=== PATIENT | male | born 1970 ===

== ENCOUNTER 2016-10-19 12:06 | Emergency (ER) | payer MEDICAID ==
[2016-10-19 12:07] VITALS: BMI 39.0
[2016-10-19 12:21] VITALS: TEMP 98.1
--- NOTE | 2016-10-19 12:54 | ED PDOC ---
Arrival/HPI - General Chief Complaint: Wound Check Time Seen by Provider: 10/19/16 12:39 Historian: Patient - History of Present Illness Narrative History of Present Illness (Text): 10/19/16 12:40 Tab Landa is a 46 year old male, whose past medical history includes diabetes and hypertension, who presents to the emergency department complaining of swelling to his penis for about 4 days. Patient states that he recently got a circumcision 4 days ago by his urologist, Dr. Bobo Guardado, and his penis has been swelling since then. Patient notes that he ran out of his medication Keflex 500 mg given post-circumcision. Patient says there is a little blood coming from wound but denies any discharge, fever, urinary symptoms, or any other complaint at this time. PMD: Dr. Yoder Urologist: Dr. Bobo Guardado Time/Duration: < week Symptom Onset: Gradual Symptom Course: Worsening Severity Level: Mild Activities at Onset: Rest Context: Home Past Medical History - Provider Review Nursing Documentation Reviewed: Yes - Infectious Disease Hx of Infectious Diseases: None - Tetanus Immunization Tetanus Immunization: Unknown - Cardiac Hx Hypertension: Yes - Pulmonary Hx Respiratory Disorders: Yes Hx Bronchitis: Yes - Neurological Hx Paralysis: No - HEENT Hx HEENT Disorder: No - Renal Hx Renal Disorder: Yes Hx Kidney Stones: Yes (lithotripsy 4 yrs ago) - Endocrine/Metabolic Hx Endocrine Disorders: Yes Hx Diabetes Mellitus Type 2: Yes - Hematological/Oncological Hx Blood Transfusions: No Hx Blood Transfusion Reaction: No - Integumentary Hx Dermatological Disorder: No - Musculoskeletal/Rheumatological Hx Arthritis: Yes - Gastrointestinal Hx Gastrointestinal Disorders: No - Genitourinary/Gynecological Hx Genitourinary Disorders: No (kidney stones) Other/Comment: circumcision 10/15/16 - Psychiatric Hx Emotional Abuse: No Hx Physical Abuse: No Hx Substance Use: No - Surgical History Hx Coronary Stent: Yes (x3) Other/Comment: kidney stones removed 2007 - Anesthesia Hx Anesthesia: Yes Hx Anesthesia Reactions: No Hx Malignant Hyperthermia: No - Suicidal Assessment Feels Threatened In Home Enviroment: No Family/Social History - Physician Review Nursing Documentation Reviewed: Yes Family/Social History: No Known Family HX Smoking Status: Former Smoker Hx Alcohol Use: No Hx Substance Use: No Hx Substance Use Treatment: No Allergies/Home Meds Allergies/Adverse Reactions: Allergies No Known Allergies Allergy (Verified 10/19/16 12:21) Home Medications: Home Meds Medication Instructions Recorded Confirmed Aspirin [Ecotrin] 81 mg PO DAILY 07/03/15 10/19/16 metFORMIN [glucOPHAGE] 750 mg PO DAILY 07/03/15 10/19/16 Losartan Potassium 50 mg PO DAILY 09/22/15 10/19/16 Alogliptin Benzoate [Alogliptin] 6.25 mg PO DAILY 09/20/16 10/19/16 amLODIPine [Norvasc] 5 mg PO DAILY 09/20/16 10/19/16 Insulin Lispro [humALOG] 10 units SUBCUT TID 10/19/16 10/19/16 Metoprolol Tartrate [Lopressor] 25 mg PO DAILY 10/19/16 10/19/16 Review of Systems - Physician Review All systems were reviewed & negative as marked: Yes - Review of Systems Constitutional: absent: Fevers, Night Sweats Eyes: absent: Vision Changes ENT: absent: Hearing Changes Respiratory: absent: SOB Cardiovascular: absent: Chest Pain Gastrointestinal: absent: Abdominal Pain Genitourinary Male: Other (Swelling to the penis). absent: Dysuria, Urinary Output Changes Musculoskeletal: absent: Arthralgias, Back Pain, Neck Pain Skin: absent: Rash, Pruritis Neurological: absent: Headache, Dizziness Endocrine: absent: Diaphoresis Hemo/Lymphatic: absent: Adenopathy Psychiatric: absent: Depression Physical Exam Vital Signs Reviewed: Yes Vital Signs Temp Pulse Resp BP Pulse Ox 10/19/16 14:31 77 16 148/97 H 97 10/19/16 12:14 98.1 F 96 H 19 150/99 H 95 Temperature: Afebrile Blood Pressure: Hypertensive Pulse: Tachycardic Respiratory Rate: Normal Appearance: Positive for: Well-Appearing, Non-Toxic, Comfortable Pain Distress: None Mental Status: Positive for: Alert and Oriented X 3 - Systems Exam Head: Present: Atraumatic, Normocephalic Pupils: Present: PERRL Extroacular Muscles: Present: EOMI Conjunctiva: Present: Normal Mouth: Present: Moist Mucous Membranes Neck: Present: Normal Range of Motion Respiratory/Chest: Present: Clear to Auscultation, Good Air Exchange. No: Respiratory Distress, Accessory Muscle Use Cardiovascular: Present: Regular Rate and Rhythm, Normal S1, S2. No: Murmurs Abdomen: Present: Normal Bowel Sounds. No: Tenderness, Distention, Peritoneal Signs Genitourinary Male: Present: Penile Swelling (Swelling to foreskin; birght red blood to area of circumcision wound). No: Penile Discharge, Erythema Back: Present: Normal Inspection Upper Extremity: Present: Normal Inspection. No: Cyanosis, Edema Lower Extremity: Present: Normal Inspection. No: Edema Neurological: Present: GCS=15, CN II-XII Intact, Speech Normal Skin: Present: Warm, Dry, Normal Color. No: Rashes Psychiatric: Present: Alert, Oriented x 3, Normal Insight, Normal Concentration Medical Decision Making ED Course and Treatment: 10/19/16 12:40 Impression: 46 year old male complaining of penile swelling post-circumcision procedure that was four days ago. Differential Diagnosis include but are not limited to: Post-surgical edema, consider early Cellulitis Plan: -- Reassess and disposition Prior Visits: Notes and results from previous visits were reviewed. Patient last seen in ED on 09/26/15 for shortness of breath and chest pain. Patient was admitted to the hospitalist care for further evaluation. Progress Notes: Case was discussed with Dr. Tate. Patient sent Dr. Tate a picture on his cell phone. Dr. Tate and I agreed that he can follow up with him in 1-2days and continue with Keflex for another 5 days. Patient and now fiancee at bedside agree with plan. He will follow up as an outpatient. He will also make sure to take his diabetic medication because his glucose was elevated. No symptoms of polydypsia, polyuria, lightheaded or any other concerns. - Medication Orders Current Medication Orders: Discontinued Medications Cephalexin Monohydrate (Keflex) 500 mg PO STAT STA PRN Reason: Protocol Stop: 10/19/16 15:15 Last Admin: 10/19/16 15:34 Dose: 500 mg - Scribe Statement The provider has reviewed the documentation as recorded by the Jud Beck Provider Scribe Attestation: All medical record entries made by the Scribe were at my direction and personally dictated by me. I have reviewed the chart and agree that the record accurately reflects my personal performance of the history, physical exam, medical decision making, and the department course for this patient. I have also personally directed, reviewed, and agree with the discharge instructions and disposition. Disposition/Present on Arrival - Present on Arrival Any Indicators Present on Arrival: No History of DVT/PE: No History of Uncontrolled Diabetes: No Urinary Catheter: No History of Decub. Ulcer: No History Surgical Site Infection Following: None - Disposition Have Diagnosis and Disposition been Completed?: Yes Diagnosis: Penile swelling Disposition: HOME/ ROUTINE Disposition Time: 15:36 Patient Plan: Discharge Condition: GOOD Additional Instructions: Mr Landa, thank you for letting us take care of you today. Your provider was Dr. Monsalve. You were treated for Penile Foreskin Swelling after Circumcision. The emergency medical care you received today was directed at your acute symptoms. If you were prescribed any medication, please fill it and take as directed. It may take several days for your symptoms to resolve. Return to the Emergency Department if your symptoms worsen, do not improve, or if you have any other problems. Please contact your doctor or call one of the physicians/clinics you have been referred to that are listed on the Patient Visit Information form that is included in your discharge packet. Bring any paperwork you were given at discharge with you along with any medications you are taking to your follow up visit. Our treatment cannot replace ongoing medical care by a primary care provider (PCP) outside of the emergency department. Thank you for allowing the [facility] team to be part of your care today. If you had an X-Ray or CT scan: A Radiologist will review the ED reading if any change in treatment is needed we will contact you. If you had a blood, urine, or wound culture: It will take several days for the results, if any change in treatment is needed we will contact you. If you had an STI test: It will take 48 hours for the results. Please call after 1 week if you have not heard back. Prescriptions: Cephalexin [Keflex] 500 mg PO Q8 #14 capsule Ibuprofen [Motrin] 600 mg PO Q6 PRN #30 tab PRN Reason: Pain, Moderate (4-7) Referrals: Francisca Yoder DO [Primary Care Provider] - Follow up with primary Bobo Tate MD [Staff Provider] - Follow up with primary Forms: [email or web address] (Moz[place]ican), WORK NOTE
[2016-10-19 14:31] VITALS: BP 148/97; PULSE 77; RESP 16; O2SAT 97
== END 2016-10-19 15:36 | disposition home or self-care (01) ==
LOC: ED 12:06
DX: N48.89 Other specified disorders of penis (principal); Z87.891 Personal history of nicotine dependence

== ENCOUNTER 2017-11-24 12:17 | Emergency (ER) | payer MEDICAID ==
[2017-11-24 12:18] VITALS: BMI 36.2
--- NOTE | 2017-11-24 12:42 | ED PDOC ---
Arrival/HPI - General Chief Complaint: Shortness Of Breath Time Seen by Provider: 11/24/17 12:36 Historian: Patient - History of Present Illness Narrative History of Present Illness (Text): 11/24/17 12:37 A 47 year old male, with an extensive cardiac history and last stent placement in 2015, sent into the emergency department by PMD for further evaluation concerning shortness of breath for 4 days. Patient notes associated mild lower leg edema. He states he took 1 Lasix 2 days ago. Patient reports a stress test done 2 years ago showed an ejection fraction of 39% and his last stress test done approximately 2 weeks ago showed an ejection fraction of 31%. However, patient has been unable to follow up with immigration attorney due to insurance complications. Patient denies any fever, chills, nausea, vomiting, abdominal pain, chest pain, calf pain or any other complaints. Patient denies any recent travel or sick contact. PMD: Dr. Dexter Yoder [employer]: Dr. Mathur Time/Duration: Other (4 days) Symptom Course: Unchanged Quality: Other Context: Home Past Medical History - Provider Review Nursing Documentation Reviewed: Yes - Infectious Disease Hx of Infectious Diseases: None - Tetanus Immunization Tetanus Immunization: Unknown - Cardiac Hx Congestive Heart Failure: Yes Hx Hypertension: Yes - Pulmonary Hx Respiratory Disorders: Yes Hx Bronchitis: Yes - Neurological Hx Paralysis: No - HEENT Hx HEENT Disorder: No - Renal Hx Renal Disorder: Yes Hx Kidney Stones: Yes (lithotripsy 4 yrs ago) - Endocrine/Metabolic Hx Endocrine Disorders: Yes Hx Diabetes Mellitus Type 2: Yes - Hematological/Oncological Hx Blood Transfusions: No Hx Blood Transfusion Reaction: No - Integumentary Hx Dermatological Disorder: No - Musculoskeletal/Rheumatological Hx Arthritis: Yes - Gastrointestinal Hx Gastrointestinal Disorders: No - Genitourinary/Gynecological Hx Genitourinary Disorders: No (kidney stones) Other/Comment: circumcision 10/15/16 - Psychiatric Hx Emotional Abuse: No Hx Physical Abuse: No Hx Substance Use: No - Surgical History Hx Coronary Stent: Yes (x3) Other/Comment: kidney stones removed 2007 - Anesthesia Hx Anesthesia: Yes Hx Anesthesia Reactions: No Hx Malignant Hyperthermia: No - Suicidal Assessment Feels Threatened In Home Enviroment: No Family/Social History - Physician Review Nursing Documentation Reviewed: Yes Family/Social History: No Known Family HX Smoking Status: Former Smoker Hx Alcohol Use: No Hx Substance Use: No Hx Substance Use Treatment: No Allergies/Home Meds Allergies/Adverse Reactions: Allergies METAL Allergy (Intermediate, Uncoded 11/24/17 12:34) RASH Home Medications: Home Meds Medication Instructions Recorded Confirmed Aspirin [Ecotrin] 81 mg PO DAILY 07/03/15 11/24/17 metFORMIN [glucOPHAGE] 1,000 mg PO BID 07/03/15 11/24/17 Alogliptin Benzoate [Alogliptin] 6.25 mg PO DAILY 09/20/16 11/24/17 amLODIPine [Norvasc] 5 mg PO DAILY 09/20/16 11/24/17 Albuterol HFA [Ventolin HFA 90 2 puff IH [id number] PRN 11/06/17 11/24/17 mcg/actuation (8 g)] Atorvastatin [Lipitor] 20 mg PO DAILY 11/06/17 11/24/17 Insulin Detemir [Levemir] 25 unit SC HS PRN 11/18/17 11/24/17 Review of Systems - Physician Review All systems were reviewed & negative as marked: Yes - Review of Systems Constitutional: absent: Fevers, Night Sweats Respiratory: SOB Cardiovascular: Edema. absent: Chest Pain, Calf Pain Gastrointestinal: absent: Abdominal Pain, Nausea, Vomiting Physical Exam Vital Signs Temp Pulse Resp BP Pulse Ox 11/24/17 16:32 72 18 123/79 99 11/24/17 16:00 88 18 125/79 98 11/24/17 14:18 98.6 F 78 18 132/79 98 11/24/17 12:52 20 11/24/17 12:18 98 F 78 18 125/72 99 Appearance: Positive for: Well-Appearing, Non-Toxic, Comfortable Pain Distress: None Mental Status: Positive for: Alert and Oriented X 3 - Systems Exam Head: Present: Atraumatic, Normocephalic Pupils: Present: PERRL Extroacular Muscles: Present: EOMI Conjunctiva: Present: Normal Mouth: Present: Moist Mucous Membranes Neck: Present: Normal Range of Motion Respiratory/Chest: Present: Good Air Exchange, Rales (to bilateral bases). No: Respiratory Distress, Accessory Muscle Use Cardiovascular: Present: Regular Rate and Rhythm, Normal S1, S2. No: Murmurs Abdomen: Present: Normal Bowel Sounds. No: Tenderness, Distention, Peritoneal Signs Back: Present: Normal Inspection Upper Extremity: Present: Normal Inspection. No: Cyanosis, Edema Lower Extremity: Present: Normal Inspection. No: Edema Neurological: Present: GCS=15, CN II-XII Intact, Speech Normal Skin: Present: Warm, Dry, Normal Color. No: Rashes Psychiatric: Present: Alert, Oriented x 3, Normal Insight, Normal Concentration Medical Decision Making ED Course and Treatment: 11/24/17 12:37 Impression: A 47 year old male with shortness of breath and lower leg edema. Plan: -- Chest xray -- EKG -- Labs -- Reassess and disposition Progress Notes: Report Date : 11/24/2017 13:05:15 Procedure: Chest xray Dictator : Fran Saab MD IMPRESSION: No active disease. 11/24/17 12:45 EKG shows NSR at 79 BPM with normal axis, normal intervals. Interpreted by me. 11/24/17 13:35 Discussed case with PMD, who is aware and agrees with Emergency department management plan, requests patient to be discharged home with follow-up instructions for PMD tomorrow. Patient understands and agrees with plan. Patient denies any new complaints and currently denies any shortness of breath. - Lab Interpretations Lab Results: 11/24/17 12:45 11/24/17 12:45 Lab Results 11/24/17 12:50: POC Glucose (mg/dL) 223 H 11/24/17 12:45: Sodium 144, Potassium 4.1, Chloride 107, Carbon Dioxide 23, Anion Gap 17, BUN 16, Creatinine 1.2, Est GFR ( Amer) > 60, Est GFR (Non- Af Amer) > 60, Random Glucose 217 H, Calcium 9.0, Magnesium 1.8, Total Bilirubin 0.9, AST 27, ALT 32, Alkaline Phosphatase 60, Lactate Dehydrogenase 516, Total Creatine Kinase 152, Troponin I 0.02 D, NT-Pro-B Natriuret Pep 111, Total Protein 7.8, Albumin 4.2, Globulin 3.6, Albumin/Globulin Ratio 1.2 11/24/17 12:45: D-Dimer, Quantitative 2440 H 11/24/17 12:45: WBC 5.5, RBC 4.13, Hgb 12.4 L, Hct 36.4 L, MCV 88.1, MCH 30.0, MCHC 34.1, RDW 13.5, Plt Count 189, MPV 10.8, Gran % 56.6, Lymph % (Auto) 34.3, [place] % (Auto) 5.1, Eos % (Auto) 3.1, Baso % (Auto) 0.9, Gran # 3.08, Lymph # ( Auto) 1.9, [place] # (Auto) 0.3, Eos # (Auto) 0.2, Baso # (Auto) 0.05 I have reviewed the lab results: Yes - RAD Interpretation Radiology Orders: 11/24/17 12:40 CHEST PORTABLE [RAD] Stat 11/24/17 13:52 ANGIO CHEST PE PROTOCOL [CT] Stat - Scribe Statement The provider has reviewed the documentation as recorded by the Scribe Heavenly Cabrera Provider Scribe Attestation: All medical record entries made by the Scribe were at my direction and personally dictated by me. I have reviewed the chart and agree that the record accurately reflects my personal performance of the history, physical exam, medical decision making, and the department course for this patient. I have also personally directed, reviewed, and agree with the discharge instructions and disposition. Disposition/Present on Arrival - Present on Arrival Any Indicators Present on Arrival: No History of DVT/PE: No History of Uncontrolled Diabetes: No Urinary Catheter: No History of Decub. Ulcer: No History Surgical Site Infection Following: None - Disposition Have Diagnosis and Disposition been Completed?: Yes Diagnosis: Elevated d-dimer Disposition: HOME/ ROUTINE Disposition Time: 16:20 Condition: GOOD Discharge Instructions (ExitCare): Shortness of Breath (Dyspnea) (DC) Additional Instructions: JOSE CABELLO, thank you for letting us take care of you today. The emergency medical care you received today was directed at your acute symptoms. If you were prescribed any medication, please fill it and take as directed. It may take several days for your symptoms to resolve. Return to the Emergency Department if your symptoms worsen, do not improve, or if you have any other problems. Please contact your doctor or call one of the physicians/clinics you have been referred to that are listed on the Patient Visit Information form that is included in your discharge packet. Bring any paperwork you were given at discharge with you along with any medications you are taking to your follow up visit. Our treatment cannot replace ongoing medical care by a primary care provider outside of the emergency department. Thank you for allowing the [facility] team to be part of your care today. Follow up with your primary doctor at 9am tomorrow. They are expecting you at that time. Referrals: Dexter Yoder APN [Primary Care Provider] - Follow up with primary Forms: [employer] (Sammarinese)
--- NOTE | 2017-11-24 13:06 | RAD ---
HISTORY: r/o infiltrate COMPARISON: Comparison chest 09/26/2015 FINDINGS: LUNGS: No active pulmonary disease. PLEURA: No significant pleural effusion identified, no pneumothorax apparent. CARDIOVASCULAR: Heart remains enlarged OSSEOUS STRUCTURES: No significant abnormalities. VISUALIZED UPPER ABDOMEN: Normal. OTHER FINDINGS: None. IMPRESSION: No active disease.
[2017-11-24 13:09] LABS: BASO # 0.05 K/mm3 (0.0-2.0); BASO % 0.9 % (0.0-3.0); EOS # 0.2 (0.0-0.7); EOS % 3.1 % (1.5-5.0); GRAN # 3.08 (1.4-6.5); GRAN % 56.6 % (50.0-68.0); HEMOGLOBIN 12.4 g/dL (14.0-18.0); LYMPH # 1.9 (1.2-3.4); LYMPH % 34.3 % (22.0-35.0); MEAN CELL VOLUME 88.1 fl (80.0-105.0); MEAN CORPUSCULAR HGB CONC 34.1 g/dl (31.0-37.0); MEAN PLATELET VOLUME 10.8 fl (7.0-11.0); MONO # 0.3 (0.1-0.6); MONO % 5.1 % (1.0-6.0); RBC 4.13 10^6/uL (3.5-6.1); RED CELL DISTRIBUTION WIDTH 13.5 % (11.5-14.5); WHITE BLOOD COUNT 5.5 10^3/ul (4.5-11.0)
[2017-11-24 13:27] LABS: ALB/GLOB RATIO 1.2 (1.1-1.8); ALBUMIN 4.2 g/dL (3.0-4.8); ALT/SGPT 32 U/L (7-56); AST/SGOT 27 U/L (17-59); BLOOD UREA NITROGEN 16 mg/dL (7-21); GFR AFRICAN-AMERICAN > 60; GFR NON-AFRICAN AMERICAN > 60
[2017-11-24 13:35] LABS: B-TYPE NATRIURETIC PEPTIDE 111 pg/mL (0-450); TROPONIN I 0.02 ng/mL
[2017-11-24] MEDS ORDERED: Iohexol 350 MG/100 ML VIAL ONE (14:21)
--- NOTE | 2017-11-24 15:35 | CARD ---
APPROVED REPORT EKG Measurement Heart [id number] <Conclusion> Normal sinus rhythm Nonspecific intraventricular block Nonspecific T wave abnormality Abnormal ECG
--- NOTE | 2017-11-24 16:03 | CT ---
PROCEDURE: CT Chest with contrast (Pulmonary Angiogram) HISTORY: SOB r/o PE COMPARISON: Comparison chest 09/19/2015 TECHNIQUE: Axial computed tomography images were obtained of the chest in the pulmonary arterial phase of enhancement. Coronal and sagittal reformatted images were created and reviewed. Intravenous contrast dose: Radiation dose: Total exam DLP = 769.26 mGy-cm. This CT exam was performed using one or more of the following dose reduction techniques: Automated exposure control, adjustment of the mA and/or kV according to patient size, and/or use of iterative reconstruction technique. FINDINGS: PULMONARY ARTERIES: The at visualized pulmonary trunk, right and left main, lobar, segmental and proximal subsegmental branches of the pulmonary arteries are well opacified with no definitive filling defects seen to suggest acute central pulmonary embolus. Pulmonary trunk measures approximately 3.5 cm slightly larger than the ascending thoracic aorta; rule out underlying mild pulmonary arterial hypertension. AORTA: No acute findings. No thoracic aortic aneurysm. LUNGS: There are ground-glass opacity seen throughout upper and lower lobes lesser degree upper and lower lobes nonspecific. Rule out air trapping, pneumonitis or sequela of pulmonary arterial hypertension. No focal consolidation. No obvious parenchymal mass or nodule. PLEURAL SPACES: Unremarkable. No effusion or pneuomothorax. HEART: Heart is enlarged. . There is a small amount of fluid seen within the cleft between the ascending thoracic aorta and pulmonary trunk . There may also be a small amount of. Ascending thoracic aorta measures approximate 3.45 cm and descending thoracic aorta measures approximately 2.55 cm. No significant hilar adenopathy. Central airways midline and patent. No large central endoluminal lesions. LYMPH NODES: There are multiple small nonspecific mediastinal lymph nodes the largest in the right paratracheal region measuring approximately 14 mm. . Additionally, there also appear to be small bilateral hilar lymph nodes. BONES, CHEST WALL: Mild multilevel degenerative spondylosis of the thoracic spine OTHER FINDINGS: Unremarkable. IMPRESSION: No evidence of acute central pulmonary embolus. Cardiomegaly. Ground-glass opacity seen throughout the upper and lower lobes. Rule out air trapping, pneumonitis or possibly sequela of pulmonary arterial hypertension as above.
[2017-11-24 16:29] VITALS: RESP 18; TEMP 98.6
[2017-11-24 16:33] VITALS: BP 123/79; PULSE 72; O2SAT 99
== END 2017-11-24 16:32 | disposition home or self-care (01) ==
LOC: ED 12:17
DX: R79.89 Other specified abnormal findings of blood chemistry (principal); E11.9 Type 2 diabetes mellitus without complications; I50.9 Heart failure, unspecified; I10 Essential (primary) hypertension; Z87.891 Personal history of nicotine dependence
CPT/HCPCS: 71045; 71275; 80053; 82550; 82948; 83615; 83735; 83880; 84484; 85025; 85378; 93005; 99283; Q9967

== ENCOUNTER 2017-12-10 07:05 | Emergency (ER) | payer MEDICAID ==
[2017-12-10 07:06] VITALS: BMI 36.2
[2017-12-10 07:25] VITALS: RESP 18; O2SAT 97
--- NOTE | 2017-12-10 07:41 | ED PDOC ---
Arrival/HPI - General Time Seen by Provider: 12/10/17 07:11 Historian: Patient - History of Present Illness Narrative History of Present Illness (Text): 12/10/17 07:31 47 year old male, whose past medical history includes CHF, CAD s/p 2 stents ( 2013), hypertension and diabetes, presents to the emergency department complaining of shortness of breath that began 1 week ago. Patient also reports associated lower leg edema. He states his Lasix has been and he has not been taking it and is taking Aspirin everyday. Patient reports he had an echocardiogram done 2 years ago showed an ejection fraction of 39% and his last echocardiogram done approximately 3 weeks ago showed an ejection fraction of 31% . Due to these results, Dr. Mathur scheduled patient for a cardiac catheterization 3 weeks ago, but patient was unable to continue with the plan due to insurance complications. Patient reports cough with yellow phlegm, but denies any fever, chills, chest pain, nausea, vomiting, diarrhea, urinary symptoms, back pain, neck pain, headache, dizziness, or any other complaints. PMD: Dr. Yoder Proof Clerk: Dr. Mathur Past Medical History - Provider Review Nursing Documentation Reviewed: Yes - Infectious Disease Hx of Infectious Diseases: None - Tetanus Immunization Tetanus Immunization: Unknown - Cardiac Hx Congestive Heart Failure: Yes Hx Hypertension: Yes - Pulmonary Hx Respiratory Disorders: Yes Hx Bronchitis: Yes - Neurological Hx Paralysis: No - HEENT Hx HEENT Disorder: No - Renal Hx Renal Disorder: Yes Hx Kidney Stones: Yes (lithotripsy 4 yrs ago) - Endocrine/Metabolic Hx Endocrine Disorders: Yes Hx Diabetes Mellitus Type 2: Yes - Hematological/Oncological Hx Blood Transfusions: No Hx Blood Transfusion Reaction: No - Integumentary Hx Dermatological Disorder: No - Musculoskeletal/Rheumatological Hx Arthritis: Yes - Gastrointestinal Hx Gastrointestinal Disorders: No - Genitourinary/Gynecological Hx Genitourinary Disorders: No (kidney stones) Other/Comment: circumcision 10/15/16 - Psychiatric Hx Emotional Abuse: No Hx Physical Abuse: No Hx Substance Use: No - Surgical History Hx Coronary Stent: Yes (x3) Other/Comment: kidney stones removed 2007 - Anesthesia Hx Anesthesia: Yes Hx Anesthesia Reactions: No Hx Malignant Hyperthermia: No - Suicidal Assessment Feels Threatened In Home Enviroment: No Family/Social History - Physician Review Nursing Documentation Reviewed: Yes Family/Social History: No Known Family HX Smoking Status: Former Smoker Hx Alcohol Use: No Hx Substance Use: No Hx Substance Use Treatment: No Allergies/Home Meds Allergies/Adverse Reactions: Allergies METAL Allergy (Intermediate, Uncoded 12/10/17 07:26) RASH Home Medications: Home Meds Medication Instructions Recorded Confirmed Aspirin [Ecotrin] 81 mg PO DAILY 07/03/15 12/10/17 metFORMIN [glucOPHAGE] 1,000 mg PO BID 07/03/15 12/10/17 Alogliptin Benzoate [Alogliptin] 6.25 mg PO DAILY 09/20/16 12/10/17 amLODIPine [Norvasc] 5 mg PO DAILY 09/20/16 12/10/17 Albuterol HFA [Ventolin HFA 90 2 puff IH [id number] PRN 11/06/17 12/10/17 mcg/actuation (8 g)] Atorvastatin [Lipitor] 20 mg PO DAILY 11/06/17 12/10/17 Insulin Detemir [Levemir] 25 unit SC HS PRN 11/18/17 12/10/17 Review of Systems - Physician Review All systems were reviewed & negative as marked: Yes - Review of Systems Constitutional: absent: Fevers Respiratory: SOB Cardiovascular: absent: Chest Pain Physical Exam - Physical Exam Narrative Physical Exam (Text): Constitutional: No acute distress. Head: Normocephalic. Atraumatic. Eyes: PERRL. ENT: Moist mucous membranes. Neck: Supple. No JVD. Cardiovascular: Regular rate. Chest: No tenderness. Respiratory: Clear to auscultation bilaterally. GI: Soft. Nontender. Nondistended. Back: No CVA tenderness. Musculoskeletal: Pitting Edema bilaterally. No tenderness of extremities. Skin: No rash. Neurologic: Alert, no focal deficit. Vital Signs Reviewed: Yes Vital Signs Temp Pulse Resp BP Pulse Ox 12/10/17 07:42 129/72 12/10/17 07:18 97.9 F 86 18 128/72 97 12/10/17 07:15 20 97 Medical Decision Making ED Course and Treatment: 12/10/17 07:32 Impression: 47 year old male presents complaining of shortness of breath for the past week associated with lower leg edema and cough. Plan: -- Labs -- Chest X-ray -- Lasix -- EKG -- Reassess and disposition Prior Visits: Notes and results from previous visits were reviewed. Patient was last seen in the emergency department on sent in by PMD for evaluation concerning shortness of breath for 4 days associated with lower leg edema. Patient was discharged. Progress Notes: 12/10/17 07:20 EKG shows sinus rhythm at 84 BPM with t-wave inversions laterally. No ST elevations with no prior for comparison. Interpreted by me. 12/10/17 08:20 CXR Impression: As read by me, no active disease. Case discussed with Dr. Mathur who is aware and agrees with the plan for discharge and request patient to follow up with him as outpatient. 12/10/17 08:22 On re-evaluation, patient feels better and is in no distress. I have discussed the results and plan with the patient, who expresses understanding. Patient in agreement with plan to be discharged home. Prescribed Lasix. Patient is stable for discharge. Patient was instructed to follow up with Proof Clerk Dr. Mathur or return if symptoms worsen or new concerning symptoms arise. - Lab Interpretations Lab Results: 12/10/17 07:24 12/10/17 07:24 Lab Results 12/10/17 07:40: POC Glucose (mg/dL) 207 H 12/10/17 07:24: Sodium 144, Potassium 3.9, Chloride 106, Carbon Dioxide 25, Anion Gap 17, BUN 14, Creatinine 1.0, Est GFR ( Amer) > 60, Est GFR (Non- Af Amer) > 60, Random Glucose 216 H, Calcium 9.2, Total Bilirubin 0.8, AST 27, ALT 32, Alkaline Phosphatase 50, Total Creatine Kinase 169, Troponin I 0.02, NT- Pro-B Natriuret Pep 173, Total Protein 7.8, Albumin 4.2, Globulin 3.7, Albumin/ Globulin Ratio 1.1 12/10/17 07:24: WBC 5.1, RBC 4.00, Hgb 12.0 L, Hct 35.6 L, MCV 89.0, MCH 30.0, MCHC 33.7, RDW 13.4, Plt Count 190, MPV 11.1 H, Gran % 60.9, Lymph % (Auto) 28.8 , Graves % (Auto) 6.4 H, Eos % (Auto) 3.5, Baso % (Auto) 0.4, Gran # 3.13, Lymph # (Auto) 1.5, Graves # (Auto) 0.3, Eos # (Auto) 0.2, Baso # (Auto) 0.02 I have reviewed the lab results: Yes - RAD Interpretation Radiology Orders: 12/10/17 07:20 CHEST PORTABLE [RAD] Stat - EKG Interpretation Interpreted by ED Physician: Yes Type: 12 lead EKG - Medication Orders Current Medication Orders: Discontinued Medications Furosemide (Lasix) 40 mg IVP STAT STA Stop: 12/10/17 07:33 Last Admin: 12/10/17 07:42 Dose: 40 mg MAR Blood Pressure Document 12/10/17 07:42 EWO (Rec: 12/10/17 07:42 [id number]) Blood Pressure Blood Pressure (100/60-150/90) 129/72 IVP Administration Document 12/10/17 07:42 EWO (Rec: 12/10/17 07:42 [id number]) Charges for Administration # of IVP Administrations 1 - Scribe Statement The provider has reviewed the documentation as recorded by the Jud Junior Provider Scribe Attestation: All medical record entries made by the Jud were at my direction and personally dictated by me. I have reviewed the chart and agree that the record accurately reflects my personal performance of the history, physical exam, medical decision making, and the department course for this patient. I have also personally directed, reviewed, and agree with the discharge instructions and disposition. Disposition/Present on Arrival - Present on Arrival Any Indicators Present on Arrival: No History of DVT/PE: No History of Uncontrolled Diabetes: No Urinary Catheter: No History of Decub. Ulcer: No History Surgical Site Infection Following: None - Disposition Have Diagnosis and Disposition been Completed?: Yes Diagnosis: Shortness of breath Disposition: HOME/ ROUTINE Disposition Time: 08:22 Patient Plan: Discharge Condition: STABLE Discharge Instructions (ExitCare): Heart Failure, Adult (DC) Prescriptions: Furosemide [Lasix] 1 tab PO BID #60 tab Referrals: Laureano Mathur MD [Staff Provider] - Follow up with primary
[2017-12-10 08:03] LABS: BASO # 0.02 K/mm3 (0.0-2.0); BASO % 0.4 % (0.0-3.0); EOS # 0.2 (0.0-0.7); EOS % 3.5 % (1.5-5.0); GRAN # 3.13 (1.4-6.5); GRAN % 60.9 % (50.0-68.0); LYMPH # 1.5 (1.2-3.4); LYMPH % 28.8 % (22.0-35.0); MEAN CORPUSCULAR HGB CONC 33.7 g/dl (31.0-37.0); MEAN PLATELET VOLUME 11.1 fl (7.0-11.0); MONO # 0.3 (0.1-0.6); MONO % 6.4 % (1.0-6.0); RED CELL DISTRIBUTION WIDTH 13.4 % (11.5-14.5); WHITE BLOOD COUNT 5.1 10^3/ul (4.5-11.0)
[2017-12-10 08:08] LABS: ALB/GLOB RATIO 1.1 (1.1-1.8); ALBUMIN 4.2 g/dL (3.0-4.8); ALT/SGPT 32 U/L (7-56); AST/SGOT 27 U/L (17-59); BLOOD UREA NITROGEN 14 mg/dL (7-21); CALCIUM 9.2 mg/dL (8.4-10.5); GFR AFRICAN-AMERICAN > 60; GFR NON-AFRICAN AMERICAN > 60
[2017-12-10 08:19] LABS: B-TYPE NATRIURETIC PEPTIDE 173 pg/mL (0-450); TROPONIN I 0.02 ng/mL
[2017-12-10 08:30] LABS: INR 1.15 (0.93-1.08); PARTIAL THROMBOPLASTIN TIME 31.1 Seconds (25.1-36.5); PROTHROMBIN TIME 13.3 SECONDS (9.4-12.5)
[2017-12-10 08:43] VITALS: BP 133/88; PULSE 78; TEMP 98.2
--- NOTE | 2017-12-10 09:57 | RAD ---
Date of service: 12/10/2017 HISTORY: dyspnea COMPARISON: 11/24/2017 FINDINGS: LUNGS: No active pulmonary disease. PLEURA: No significant pleural effusion identified, no pneumothorax apparent. CARDIOVASCULAR: Normal. OSSEOUS STRUCTURES: No significant abnormalities. VISUALIZED UPPER ABDOMEN: Normal. OTHER FINDINGS: None. IMPRESSION: No active disease.
--- NOTE | 2017-12-10 18:40 | CARD ---
APPROVED REPORT Date of service: 12/10/2017 EKG Measurement Heart [id number] <Conclusion> Normal sinus rhythm Possible Left atrial enlargement Nonspecific intraventricular block T wave abnormality, consider lateral ischemia Abnormal ECG
== END 2017-12-10 08:41 | disposition home or self-care (01) ==
LOC: ED 07:05
DX: R06.02 Shortness of breath (principal)
CPT/HCPCS: 71045; 80053; 82550; 82948; 83880; 84484; 85025; 85610; 85730; 93005; 96374; 99283; J1940

== ENCOUNTER 2017-12-30 06:20 | Day surgery (SDC) | payer MEDICAID ==
[2017-12-30 07:10] LABS: BASO # 0.04 K/mm3 (0.0-2.0); BASO % 0.7 % (0.0-3.0); EOS # 0.2 (0.0-0.7); EOS % 3.3 % (1.5-5.0); GRAN # 3.67 (1.4-6.5); HEMOGLOBIN 12.2 g/dL (14.0-18.0); LYMPH # 1.7 (1.2-3.4); LYMPH % 28.3 % (22.0-35.0); MEAN CELL VOLUME 88.8 fl (80.0-105.0); MEAN CORPUSCULAR HEMOGLOBIN 29.7 pg (25.0-35.0); MEAN CORPUSCULAR HGB CONC 33.4 g/dl (31.0-37.0); MEAN PLATELET VOLUME 10.5 fl (7.0-11.0); MONO # 0.5 (0.1-0.6); MONO % 7.7 % (1.0-6.0); RBC 4.11 10^6/uL (3.5-6.1); RED CELL DISTRIBUTION WIDTH 13.7 % (11.5-14.5); WHITE BLOOD COUNT 6.1 10^3/ul (4.5-11.0)
[2017-12-30 07:17] LABS: INR 1.09; PARTIAL THROMBOPLASTIN TIME 26.5 Seconds (25.1-36.5); PROTHROMBIN TIME 12.5 SECONDS (9.4-12.5)
[2017-12-30 07:24] LABS: BLOOD UREA NITROGEN 17 mg/dL (7-21); GFR AFRICAN-AMERICAN > 60; GFR NON-AFRICAN AMERICAN > 60; HDL CHOLESTEROL 31 mg/dL (29-60)
[2017-12-30] MEDS ORDERED: Lidocaine PF 2% (5 ml) Inj (For Cardiac Arrhy) ONE (07:24)
[2017-12-30] MEDS ORDERED: Phenylephrine 10 mg/ml Inj ONE (07:24)
[2017-12-30] MEDS ORDERED: Nitroglycerin 50mg in D5W 50 MG/250 ML BOTTLE IV ONE (07:25)
[2017-12-30] MEDS ORDERED: Iohexol 350mgl/ml 50 ML ONE (07:25)
[2017-12-30] MEDS ORDERED: Iodixanol 320 MG/ML 100 ML BOTTLE IV ONE (07:25)
[2017-12-30] MEDS ORDERED: Iodixanol 320 MG/ML 200 ML BOTTLE IV ONE (07:25)
[2017-12-30 07:26] VITALS: RESP 18
[2017-12-30 07:28] LABS: LDL CHOLESTEROL 82 mg/dL (0-129)
[2017-12-30] MEDS ORDERED: Midazolam 2 MG/2 ML VIAL ONE ×2 (07:53→07:58)
[2017-12-30] MEDS ORDERED: Sodium Chloride 0.9% 1,000 ML IV SCH (08:30)
[2017-12-30 08:42] VITALS: TEMP 97.7
--- NOTE | 2017-12-30 12:03 | CARD ---
APPROVED REPORT Date of service: 12/30/2017 EKG Measurement Heart [id number] <Conclusion> Normal sinus rhythm Possible Left atrial enlargement Nonspecific intraventricular block Nonspecific T wave abnormality Abnormal ECG
--- NOTE | 2017-12-30 13:24 | CARDCATH ---
Copied To: Laureano Mathur MD Attending MD: Lauraeno Mathur MD PROCEDURE DATE: 12/30/2017 HISTORY: The patient is a 47-year-old male who presents with shortness of breath and chest pain. Stress test was abnormal with ischemic changes as well as deterioration of his LV function. The patient suffers from diabetes mellitus, previous PTCA in the past, hypercholesterolemia, noncompliance to medical advice. PROCEDURE: Left heart catheterization with coronary arteriography and left ventriculogram. The right femoral artery was cannulated with a 6-[place] sheath. There were no complications. I performed moderate sedation for the procedure with an assistant boys track coach monitoring his vitals and neurologic status, the patient was given Versed and fentanyl. Total conscious sedation time was 15 minutes. The findings on catheterization revealed a left ventricle that was dilated and diffusely hypokinetic. Estimated ejection fraction of 25-30%. His coronary anatomy revealed a right dominant circulation. The RCA revealed a patent stent in the midportion. There was a 50% stenosis in the proximal RCA. The left main artery revealed diffuse atherosclerosis. The circumflex artery and obtuse marginal branches revealed diffuse atherosclerosis. The LAD revealed a 50% stenosis in its midportion with a 60-70% stenosis in a diagonal vessel. The Angio-Seal was used to close the femoral artery site. The patient tolerated the procedure well. In summary, the procedure revealed dilated cardiomyopathy with an EF of 25-30%. Cardiac catheterization revealed patent stent in the mid RCA with borderline critical lesion in the proximal RCA, mid LAD and diagonal vessel. Given these findings, no stents were necessary or angioplasty of his coronary arteries, instead, his cardiomyopathy will need to be treated medically with afterload reduction and possible beta blockers. He needs to finally lose weight and undergo a cardiac risk reduction program. Laureano Mathur MD
[2017-12-30 14:23] VITALS: BP 142/81; PULSE 78; O2SAT 95
== END 2017-12-30 14:10 | disposition home or self-care (01) ==
LOC: CATH 06:20
PROVIDERS: ATTEND Internal Medicine Cardiovascular Disease
DX: I42.0 Dilated cardiomyopathy (principal); I25.10 Atherosclerotic heart disease of native coronary artery without angina pectoris; E11.9 Type 2 diabetes mellitus without complications; E78.00 Pure hypercholesterolemia, unspecified; Z91.19 Patient's noncompliance with other medical treatment and regimen; Z79.4 Long term (current) use of insulin; Z79.82 Long term (current) use of aspirin; Z95.5 Presence of coronary angioplasty implant and graft
CPT/HCPCS: 36415; 80048; 80061; 85025; 85610; 85730; 86850; 86900; 93005; 93458; 99152; C1760; C1769; C2629; J1644; J2250; J3010; J7040; Q9966; Q9967 ×2

== ENCOUNTER 2018-08-20 17:10 | Emergency (ER) | payer MEDICAID ==
[2018-08-20 17:11] VITALS: BMI 36.2
[2018-08-20 17:22] VITALS: BP 171/97; PULSE 85; RESP 18; TEMP 99; O2SAT 96
--- NOTE | 2018-08-20 18:16 | RAD ---
Date of service: 08/20/2018 PROCEDURE: Right Knee Radiographs. HISTORY: knee pain s/p fall today COMPARISON: None. TECHNIQUE: 3 views obtained. FINDINGS: BONES: Bone alignment and mineralization are normal. There is no acute displaced fracture or bone destruction. JOINTS: There is mild tricompartmental degenerative osteoarthrosis with reduced joint spaces, marginal osteophytes and tibial spiking, worse in the lateral compartment. JOINT EFFUSION: There is a small suprapatellar joint effusion. OTHER FINDINGS: None. IMPRESSION: No acute displaced fracture or dislocation. Mild tricompartmental degenerative osteoarthrosis, worse in the lateral compartment and small suprapatellar joint effusion.
--- NOTE | 2018-08-20 18:23 | ED PDOC ---
Arrival/HPI - General Chief Complaint: Lower Extremity Problem/Injury Time Seen by Provider: 08/20/18 17:20 Historian: Patient - History of Present Illness Narrative History of Present Illness (Text): 08/20/18 18:46 48 y/o male with PMH of CAD, DM, HTN, CHF, osteoarthritis, presents to the ED c/o right knee pain s/p mechanical fall this afternoon. Pt was stepping down the 2nd step of a ladder when he missed the bottom step, twisting his right knee and falling to the ground. Now c/o pain to bilateral joint lines worse with ambulation and bearing weight. Denies head strike or LOC. Pt not on blood thinners. Pt does not have an orthopedic doctor. Has not taken any medication for pain. Denies numbness, weakness, paresthesias, vision changes, dizziness, headache, nausea, vomiting, back pain, neck pain, saddle anesthesia, inc ontinence, or any other associated symptoms. Past Medical History - Provider Review Nursing Documentation Reviewed: Yes - Infectious Disease Hx of Infectious Diseases: None - Tetanus Immunization Tetanus Immunization: Unknown - Cardiac Hx Cardiac Disorders: Yes Hx Congestive Heart Failure: Yes Hx Hypertension: Yes Other/Comment: cardiac cath x 3 stents - Pulmonary Hx Respiratory Disorders: Yes Hx Bronchitis: Yes - Neurological Hx Neurological Disorder: No - HEENT Hx HEENT Disorder: Yes (READING GALSSES) - Renal Hx Renal Disorder: Yes Hx Kidney Stones: Yes (lithotripsy 4 yrs ago) - Endocrine/Metabolic Hx Endocrine Disorders: Yes Hx Diabetes Mellitus Type 2: Yes - Hematological/Oncological Hx Blood Disorders: No - Integumentary Hx Dermatological Disorder: No - Musculoskeletal/Rheumatological Hx Falls: No - Gastrointestinal Hx Gastrointestinal Disorders: No - Genitourinary/Gynecological Hx Genitourinary Disorders: Yes (kidney stones) - Psychiatric Hx Psychophysiologic Disorder: No Hx Substance Use: No - Surgical History Hx Coronary Stent: Yes (x3) Hx Orthopedic Surgery: Yes (LEFT KNEE ,RIGHT HAND) Other/Comment: kidney stones removed 2007 - Anesthesia Hx Anesthesia: Yes Hx Anesthesia Reactions: No Hx Malignant Hyperthermia: No - Suicidal Assessment Feels Threatened In Home Enviroment: No Family/Social History - Physician Review Nursing Documentation Reviewed: Yes Family/Social History: No Known Family HX Smoking Status: Former Smoker Hx Alcohol Use: No Hx Substance Use: No Hx Substance Use Treatment: No Allergies/Home Meds Allergies/Adverse Reactions: Allergies METAL Allergy (Intermediate, Uncoded 08/20/18 17:17) RASH Home Medications: Home Meds Medication Instructions Recorded Confirmed Aspirin [Ecotrin] 81 mg PO DAILY 07/03/15 08/20/18 metFORMIN [glucOPHAGE] 1,000 mg PO BID 07/03/15 08/20/18 amLODIPine [Norvasc] 5 mg PO DAILY 09/20/16 08/20/18 Atorvastatin [Lipitor] 20 mg PO DAILY 11/06/17 08/20/18 Insulin Detemir [Levemir] 25 unit SC HS PRN 11/18/17 08/20/18 Furosemide [Lasix] 20 mg PO BID 08/20/18 08/20/18 Losartan/Hydrochlorothiazide 1 tab PO DAILY 08/20/18 08/20/18 [Losartan-Hctz 50-12.5 mg Tab] Sacubitril/Valsartan [Entresto 49 1 tab PO DAILY 08/20/18 08/20/18 mg-51 mg] Spironolactone [Aldactone] 1 tab PO QOTHERDAY 08/20/18 08/20/18 Review of Systems - Review of Systems Constitutional: Normal. absent: Fatigue, Fevers Eyes: Normal. absent: Vision Changes Respiratory: Normal. absent: SOB, Cough Cardiovascular: Normal. absent: Chest Pain, Palpitations Gastrointestinal: Normal. absent: Abdominal Pain, Stool Changes, Nausea, Vomiting, Appetite Changes Musculoskeletal: Other (knee pain). absent: Back Pain, Neck Pain Skin: Normal. absent: Rash, Laceration, Abscess Neurological: Normal. absent: Headache, Dizziness, Focal Weakness, Gait Changes, Disequilibrium, Seizure Physical Exam Vital Signs Reviewed: Yes Vital Signs Temp Pulse Resp BP Pulse Ox 08/20/18 17:21 99.0 F 85 18 171/97 H 96 Temperature: Afebrile Blood Pressure: Hypertensive Pulse: Regular Respiratory Rate: Normal Appearance: Positive for: Well-Appearing, Non-Toxic, Comfortable Pain Distress: None Mental Status: Positive for: Alert and Oriented X 3 - Systems Exam Head: Present: Atraumatic, Normocephalic Pupils: Present: PERRL Extroacular Muscles: Present: EOMI Conjunctiva: Present: Normal Mouth: Present: Moist Mucous Membranes Neck: Present: Normal Range of Motion. No: Meningeal Signs, MIDLINE TENDERNESS, Paraspinal Tenderness Respiratory/Chest: Present: Clear to Auscultation, Good Air Exchange. No: Respiratory Distress, Accessory Muscle Use Cardiovascular: Present: Regular Rate and Rhythm, Normal S1, S2, Peripheal Pulses Present Abdomen: No: Tenderness, Distention, Peritoneal Signs, Rebound, Guarding Back: Present: Normal Inspection. No: CVA Tenderness, Midline Tenderness, Paraspinal Tenderness Upper Extremity: Present: Normal Inspection, Normal ROM, NORMAL PULSES, Kesha rovascularly Intact, Capillary Refill < 2s. No: Cyanosis, Edema, Tenderness, Swelling, Temperature Abnormalties Lower Extremity: Present: Normal Inspection, NORMAL PULSES, Normal ROM, Tenderness (right knee bilateral joint lines and just lateral and proximal to patella), Neurovascularly Intact, Capillary Refill < 2 s. No: Edema, Deformity, Temperature Abnormalties Neurological: Present: GCS=15, CN II-XII Intact, Speech Normal, Motor Func Grossly Intact, Normal Sensory Function Skin: Present: Warm, Dry, Normal Color. No: Rashes Psychiatric: Present: Alert, Oriented x 3, Normal Insight, Normal Concentration, Normal Affect, Normal Mood Medical Decision Making ED Course and Treatment: 08/20/18 18:55 Initial Plan: * Right Knee XR * Pain medication Pt refusing pain medication at this time. Right knee XR negative for fracture or dislocation, shows small suprapatellar effusion Pt given copy of his report. Advised orthopedic and PMD followup. Pt placed in right knee immobilizer and crutches by injection molding process technician. Crutch training provided by injection molding process technician. Pt able to demonstrate safe and appropriate crutch use prior to discharge. Diagnostic testing results and plan of care discussed with patient. Strict instructions given regarding prescription use, importance of followup, and signs/symptoms to return to ER including numbness, weakness, paresthesias, or any other new/worsening symptoms. Pt verbalized understanding of discussion. John browne is A&Ox3, ambulating with steady gait with crutches, with vital signs stable for discharge. - RAD Interpretation Narrative RAD Interpretations (Text): 08/20/18 19:00 Right Knee XR: FINDINGS: BONES: Bone alignment and mineralization are normal. There is no acute displaced fracture or bone destruction. JOINTS: There is mild tricompartmental degenerative osteoarthrosis with reduced joint spaces, marginal osteophytes and tibial spiking, worse in the lateral compartment. JOINT EFFUSION: There is a small suprapatellar joint effusion. OTHER FINDINGS: None. IMPRESSION: No acute displaced fracture or dislocation. Mild tricompartmental degenerative osteoarthrosis, worse in the lateral compartment and small suprapatellar joint effusion. Radiology Orders: 08/20/18 17:37 KNEE W PATELLA RIGHT 3 VIEW [RAD] Stat Television Announcer: Radiologist Disposition/Present on Arrival - Present on Arrival Any Indicators Present on Arrival: No History of DVT/PE: No History of Uncontrolled Diabetes: No Urinary Catheter: No History of Decub. Ulcer: No History Surgical Site Infection Following: None - Disposition Have Diagnosis and Disposition been Completed?: Yes Diagnosis: Knee sprain Disposition: HOME/ ROUTINE Disposition Time: 18:21 Patient Plan: Discharge Patient Problems: Current Active Problems Problem Status Onset Knee sprain Acute Condition: STABLE Discharge Instructions (ExitCare): Knee Sprain (DC) Additional Instructions: Ibuprofen every 8 hours with food as needed for pain Knee immobilizer until followup Use crutches to ambulate until orthopedic followup Rest, ice, elevate injured leg Followup with orthopedics within 2 days Followup with primary within 2 days Return to ER with any new/worsening symptoms Prescriptions: Ibuprofen [Motrin Tab] 600 mg PO Q8 PRN #30 tab PRN Reason: Pain, Moderate (4-7) Referrals: Jabari Herman DO [Staff Provider] - Follow up with primary Francisca Yoder DO [Doctor Osteopathy] - Follow up with primary Santiago Ramirez MD [Staff Provider] - Follow up with primary Forms: [facility] ([place]), WORK NOTE
== END 2018-08-20 18:50 | disposition home or self-care (01) ==
LOC: ED 17:10
DX: S83.91XA Sprain of unspecified site of right knee, initial encounter (principal); W11.XXXA Fall on and from ladder, initial encounter; E11.9 Type 2 diabetes mellitus without complications; I50.9 Heart failure, unspecified; I25.10 Atherosclerotic heart disease of native coronary artery without angina pectoris; I10 Essential (primary) hypertension; Z87.891 Personal history of nicotine dependence